=== PATIENT | female | born 1975 | race Caucasian/White ===

== ENCOUNTER 2023-12-22 11:14 | Emergency (ER) | payer OTHER, SELFPAY ==
[2023-12-22 11:20] VITALS: BP 113/71
[2023-12-22 11:36] LABS: % Basophils 0.7 % (0-2); % Eosinophils 2.3 % (0-6); % Immature Granulocytes 0.2 % (0-0.5); % Lymphocytes 49.8 % (20.5-51.1); % Monocytes 7.2 % (1.7-9.3); % Neutrophils 39.8 % (42.2-75.2); Absolute Eosinophils 0.1 10^3/uL (0-0.7); Absolute Lymphocytes 2.8 10^3/uL (1.2-3.4); Absolute Monocytes 0.4 10^3/uL (0.1-0.6); Absolute Neutrophils 2.2 10^3/uL (1.4-6.5); Hematocrit 35.3 % (37.0-47.0); Hemoglobin 11.5 g/dL (12.0-16.0); Mean Corp Hgb Conc. 32.6 g/dL (33.0-37.0); Mean Corpuscular Hgb 28.3 pg (27.0-31.0); Mean Corpuscular Volume 86.9 fL (81.0-99.0); Mean Platelet Volume 9.7 fL (7.4-10.4); Nucleated Red Blood Cells % 0 %; Platelet Count 211 10^3/uL (130-400); Red Blood Cell Count 4.06 10^6/uL (4.20-5.40); Red Cell Dist. Width 12.7 % (11.5-14.5); White Blood Cell Count 5.6 10^3/uL (4.8-10.8)
[2023-12-22 11:54] LABS: ALT (SGPT) 13 U/L (0-35); AST (SGOT) 18 U/L (14-36); Alkaline Phosphatase 55 U/L (38-126); Blood Urea Nitrogen 15 mg/dl (7-17); Calcium 9.3 mg/dl (8.4-10.2); Carbon Dioxide 25 mmol/L (22-30); Chloride 106 mmol/L (98-107); Glucose 97 mg/dl (70-99); Potassium 3.4 mmol/L (3.5-5.1); Sodium 141 mmol/L (135-145); Total Bilirubin 0.5 mg/dl (0.2-1.3); Total Protein 6.9 g/dl (6.3-8.2); eGFR > 60.00
--- NOTE | 2023-12-22 13:03 | ED.GENMED ---
History of Present Illness
General
Chief Complaint: Numbness
Source: patient
Exam Limitations: none
Time Seen by Provider: 12/22/23 12:50
Travel History
Have you had any contact with someone who has COVID-19?: No
Do you have any symptoms of coronavirus? Fever > 100 degrees, chills, cough, shortness of breath, sore throat, loss of taste or smell, muscle aches, or headache?: No
History of Present Illness
History of Present Illness:
Patient primarily here with a complaint of bilateral facial tingling and lip tingling. She also has a headache that is moderate in nature. Headache is generalized. She does have a history of migraines. No photophobia no weakness no gait issues
no nausea or vomiting. No chest pain or shortness of breath. She gets paresthesias in her arms mostly left arm from cervical stenosis. This is not a new symptom however.
Past History
Past History
ED Past Medical History: Asthma and Other (Migraines)
ED Past Surgical History: Other (Cochlear implant)
Social History
Tobacco: Non-smoker
Alcohol: None
Drug: None
Personal:
Living: with family
Review of Systems
Review of Systems
All Other Systems: Not applicable
Respiratory: Reports no symptoms
Cardiac: Reports no symptoms
ABD/GI: Reports no symptoms
Phy Exam
Physical Exam
Physical Exam:
GENERAL: Alert and oriented in no apparent distress
EYE: Orbits normal.
NECK: Supple, no thyroid palpable. No carotid bruit.
ENT: Pharynx without erythema
CARDIAC: Regular rate and rhythm without any obvious murmurs.
LUNGS: Clear breath sounds,normal
ABDOMEN: Soft, without focal tenderness or distention
NEUROLOGICAL: Alert and oriented , cranial nerves II through XII intact. Speech normal. [id number] normal. No drift. Touch intact. Graphesthesia intact.
SKIN: Warm and dry, no rash or lesion, no discoloration, skin intact.
MUSCULOSKELETAL: No edema,no deformity.Good color
PSYCH: Normal and appropriate interaction.
Course
Orders/Labs/Results
Orders:
Orders
12/22/23 11:28
Complete Blood Count/With Diff Urgent
Comprehensive Metabolic Panel Urgent
HCG, Serum Qualitative Screen Urgent
Magnesium Urgent
TSH Reflex To Free T4 Urgent
Comment: ADD ON
12/22/23 13:02
Add On- LAB Urgent
Tests Added?: qual bhcg. tsh reflex t4. magnesium
CT Head W/o Iv Contrast Urgent
Comment:
Reason For Exam: Headache/paresthesias
CT Neck Angio W/wo Iv Contrast Urgent
Comment:
Reason For Exam: Headaches/paresthesias
IV Insert/Care/Rem.- Treatment PRN
0.9% Sodium Chloride 500 ml [Nss] 500 ml IV BOLUS
12/22/23 13:05
Electrocardiogram (*1) Stat
Reason for Study: Other
Other Reason for Exam: neuro symptoms
Cardiac Monitoring- Treatment ONCE
EKG- Treatment ONCE
Abnormal Lab Results
12/22/23
11:28
RBC 4.06 L 10^6/uL
(4.20-5.40)
Hgb 11.5 L g/dL
(12.0-16.0)
Hct 35.3 L %
(37.0-47.0)
MCHC 32.6 L g/dL
(33.0-37.0)
Neutrophils % 39.8 L %
(42.2-75.2)
Potassium 3.4 L mmol/L
(3.5-5.1)
12/22/23 11:28
12/22/23 11:28
Vital Signs
Initial and Last Documented VS:
Initial Vital Signs
Temp Pulse Resp BP Pulse Ox
98.2 F 73 18 113/71 100
12/22/23 11:20 12/22/23 11:20 12/22/23 11:20 12/22/23 11:20 12/22/23 11:20
Last Documented Vital Signs
Temp Pulse Resp BP Pulse Ox
98.2 F 67 17 120/80 98
12/22/23 11:20 12/22/23 18:14 12/22/23 18:14 12/22/23 18:14 12/22/23 18:14
MDM/Problems Addressed
Differential Diagnosis Includes:
Symmetrical paresthesias mostly of the face and lips. Some headache. Neurologic exam is normal. Paresthesias of the arm are chronic. Workup in progress. Doubt central neurologic issue however with a headache CT and CT angiography of the neck
will be done. Patient did describe some lightheaded this morning that sounded almost presyncopal.
*Radiology
Radiology exam reviewed: radiology read reviewed (No acute findings on CT. Scarring at the base of the lungs. Some spinal changes in the cervical spine. Foraminal narrowing and mild to moderate spinal stenosis)
*Pulse Oximetry
Patient hypoxic: no
*EKG
Interpreted by ED Provider?: Yes
Interpretation: normal
Comparison EKG: no comparison EKG present
Heart Rate: 68
Rate: normal
Rhythm: sinus
[place]: normal axis
Interval: normal interval
QRS Pattern: normal QRS
Ischemia: no ischemia
*Calculating Machine Mechanic Interpretation
Rate: normal
Interpretation: normal
Heart Rate: 70
Rhythm: sinus
*Critical Care Note
Total Time (30-74mins, 75-104mins- exclusive of procedures): Not Applicable
Update Note
Update Note:
Medically stable and nontoxic. Benign neurologic exam. No serious etiology found. Doubt this is a cervical spine issue. However does warrant follow-up. Minimal hypokalemia
ED Attending Note
-
Portions of this chart may have been created with voice recognition software.� Occasional wrong word or��sound alike� substitutions may have occurred due to the inherent limitations of voice recognition software.
Discharge Plan
Departure
Patient Disposition: Home (Routine Discharge)
Date of Disposition: 12/22/23
Time of Disposition: 18:04
Patient with high blood pressure during this ER visit?: No
Discharge Problem:
Paresthesias, Mild hypokalemia, Cervical degenerative changes, Cervical spinal stenosis
Instructions: Hypokalemia, Paresthesia (DC), Degenerative Disc Disease ED
Referrals:
Haile Tapia MD [Active] - Next open appointment
PRIVATE,PHYSICIAN [Family Provider] -
Activity Restrictions/Additional Instructions:
Follow-up closely with your primary physician
Get your potassium repeated in 1 to 2 weeks
Return sooner with increased symptoms or progression in symptoms or any other new neurologic symptoms
Interventions
Interventions:
*Risk Screen - Suicide Last Done: 12/22/23 18:15
*General Assessment Last Done: 12/22/23 18:15
*Neglect/Abuse Screening Last Done: 12/22/23 18:15
ED- Fall Risk Assessment Last Done: 12/22/23 13:12
*ED COVID-19 Vaccine History Last Done: 12/22/23 11:20
*Nursing Disposition Last Done: 12/22/23 18:15
ED- Neurological Assessment Last Done: 12/22/23 13:12
Discharge Date and Time
Discharge Date/Time: 12/22/23 18:20
Print Language: ALB[place]
[2023-12-22 13:06] VITALS: BMI 19.4
[2023-12-22] MEDS: NSS 500 IV (13:11)
[2023-12-22 13:12] VITALS: BP 112/70
[2023-12-22 13:52] LABS: Magnesium 1.9 mg/dl (1.6-2.3)
[2023-12-22 14:00] VITALS: BP 120/78
[2023-12-22 14:01] LABS: HCG, Serum Qualitative Screen Negative
[2023-12-22 15:00] VITALS: BP 129/83
[2023-12-22 15:57] LABS: TSH Reflex To Free T4 2.35 uIU/ml (0.47-4.68)
[2023-12-22 18:14] VITALS: BP 120/80
== END 2023-12-22 18:20 | disposition home or self-care (01) ==
LOC: EMR 11:14
PROVIDERS: Emergency Medicine; EMERGENCY PHYSICIAN Emergency Medicine
DX: R20.2 Paresthesia of skin (principal); R51.9 Headache, unspecified; R42 Dizziness and giddiness; M48.02 Spinal stenosis, cervical region; M47.812 Spondylosis without myelopathy or radiculopathy, cervical region; E87.6 Hypokalemia; J45.909 Unspecified asthma, uncomplicated; Z88.6 Allergy status to analgesic agent; Z88.5 Allergy status to narcotic agent
CPT/HCPCS: 99284; 96361; 96360; 70450; 70498; 80053; 83735; 84443; 84703; 85025; 93005; Q9967

== ENCOUNTER 2024-05-19 08:52 | Emergency (ER) | payer OTHER, SELFPAY ==
[2024-05-19 08:54] VITALS: BP 133/88
[2024-05-19] MEDS: REGLAN 10 MG IV (09:24)
[2024-05-19] MEDS: NSS 500 IV (09:24)
[2024-05-19 09:43] LABS: % Eosinophils 1.6 % (0-6); % Immature Granulocytes 0.2 % (0-0.5); % Lymphocytes 17.2 % (20.5-51.1); % Monocytes 6.4 % (1.7-9.3); % Neutrophils 73.6 % (42.2-75.2); Absolute Basophils 0.1 10^3/uL (0-0.2); Absolute Eosinophils 0.1 10^3/uL (0-0.7); Absolute Lymphocytes 1.1 10^3/uL (1.2-3.4); Absolute Monocytes 0.4 10^3/uL (0.1-0.6); Absolute Neutrophils 4.5 10^3/uL (1.4-6.5); Hematocrit 35.5 % (37.0-47.0); Hemoglobin 12.2 g/dL (12.0-16.0); Mean Corp Hgb Conc. 34.4 g/dL (33.0-37.0); Mean Corpuscular Hgb 27.2 pg (27.0-31.0); Mean Corpuscular Volume 79.1 fL (81.0-99.0); Mean Platelet Volume 10.9 fL (7.4-10.4); Nucleated Red Blood Cells % 0 %; Platelet Count 196 10^3/uL (130-400); Red Blood Cell Count 4.49 10^6/uL (4.20-5.40); White Blood Cell Count 6.1 10^3/uL (4.8-10.8)
[2024-05-19 09:57] LABS: Blood Urea Nitrogen 23 mg/dl (7-17); Calcium 9.8 mg/dl (8.4-10.2); Carbon Dioxide 25 mmol/L (22-30); Chloride 104 mmol/L (98-107); Glucose 97 mg/dl (70-99); Potassium 4.5 mmol/L (3.5-5.1); Sodium 140 mmol/L (135-145); eGFR > 60.00
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
[2024-05-19 10:41] VITALS: BP 99/74
[2024-05-19] MEDS: TORADOL 30 MG IV (10:51)
[2024-05-19 11:00] VITALS: BP 118/83
== END 2024-05-19 11:59 | disposition home or self-care (01) ==
LOC: EMR 08:52
PROVIDERS: Physician Assistant; EMERGENCY PHYSICIAN Emergency Medicine; FAMILY PHYSICIAN Internal Medicine
DX: R51.9 Headache, unspecified (principal); J45.909 Unspecified asthma, uncomplicated
CPT/HCPCS: 99284; 96374; 96375; 70450; 80048; 85025